=== PATIENT | female | born 1980 | race Caucasian/White ===

== ENCOUNTER → 2016-11-04 | Outpatient (CLI) | payer BC ==
[~2016-11-04] MED LIST: CALC200T; HYDR200T5 PO; LEVO112T2 PO; PRENTAB26 PO
[2016-11-04 17:34] LABS: HEMATOCRIT 34.8 % (37-47)
[2016-11-04 17:54] LABS: GTGD 50 Grams
[2016-11-04 18:08] LABS: THYROID STIMULATING HORMONE 1.48 uIu/ml (0.300-4.500)
[2016-11-04 20:32] LABS: MANUAL MICROSCOPIC REQUIRED? NO; REVIEW REQ? NO; URINE APPEARANCE CLEAR (CLEAR); URINE BILIRUBIN NEG (NEG); URINE COLOR YELLOW; URINE NITRITE NEG (NEG); URINE PH 6.5 (4.5-7.5); URINE SPECIFIC GRAVITY 1.009 (1.000-1.030); UROBILINOGEN NEG (NEG)
== END | disposition home or self-care (01) ==
LOC: C.LAB1850 15:57
PROVIDERS: ATTEND Obstetrics & Gynecology
DX: O99.283 Endocrine, nutritional and metabolic diseases complicating pregnancy, third trimester (principal); E06.3 Autoimmune thyroiditis

== ENCOUNTER → 2016-11-14 | Outpatient (CLI) | payer BC | END | disposition home or self-care (01) | LOC: C.LAB1850 07:24 | PROVIDERS: ATTEND Obstetrics & Gynecology | DX: O28.9 Unspecified abnormal findings on antenatal screening of mother (principal); Z3A.00 Weeks of gestation of pregnancy not specified ==

== ENCOUNTER → 2016-11-16 | Outpatient (CLI) | payer BC ==
[2016-11-21 16:17] LABS: CYTOMEGALOVIRUS IGG AB <0.91
== END | disposition home or self-care (01) ==
LOC: C.LAB1850 16:06
PROVIDERS: ATTEND Obstetrics & Gynecology
DX: Z11.59 Encounter for screening for other viral diseases (principal)

== ENCOUNTER 2016-11-20 10:50 | Outpatient (CLI) | payer BC | END 2016-11-20 11:35 | disposition home or self-care (01) | LOC: C.OPB 10:50 → C.LD 10:51 → C.OPB 11:35 | PROVIDERS: ATTEND Obstetrics & Gynecology | DX: O36.8130 Decreased fetal movements, third trimester, not applicable or unspecified (principal); Z3A.30 30 weeks gestation of pregnancy ==

== ENCOUNTER → 2016-12-02 | Outpatient (CLI) | payer BC ==
[2016-12-02 17:54] LABS: THYROID STIMULATING HORMONE 1.06 uIu/ml (0.300-4.500)
== END | disposition home or self-care (01) ==
LOC: C.LAB1850 16:47
PROVIDERS: ATTEND Obstetrics & Gynecology
DX: O99.283 Endocrine, nutritional and metabolic diseases complicating pregnancy, third trimester (principal)

== ENCOUNTER → 2016-12-26 | Outpatient (CLI) | payer BC ==
[2016-12-29 23:45] LABS: CYTOMEGALOVIRUS IGG AB <0.91
== END | disposition home or self-care (01) ==
LOC: C.LAB 08:00
PROVIDERS: ATTEND Obstetrics & Gynecology
DX: Z11.59 Encounter for screening for other viral diseases (principal)

== ENCOUNTER → 2016-12-30 | Outpatient (CLI) | payer BC | END | disposition home or self-care (01) | LOC: C.LABSPEC 17:45 | PROVIDERS: ATTEND Obstetrics & Gynecology | DX: O99.283 Endocrine, nutritional and metabolic diseases complicating pregnancy, third trimester (principal); Z3A.00 Weeks of gestation of pregnancy not specified ==

== ENCOUNTER 2017-01-25 02:48 | Inpatient (IN) | payer BC ==
[~2017-01-25] VITALS: Ht 167.6 cm; Wt 102.0 kg
[2017-01-30] MEDS ORDERED: LACTATED RINGER'S 1000ML 1,000 ML IV PRN (20:50)
[2017-01-30] MEDS ORDERED: LACTATED RINGER'S 1000ML 1,000 ML IV SCH (20:50)
[2017-01-30] MEDS ORDERED: EpHEDrine SULFATE INJ 50 MG/ML AMP ONE (20:59)
[2017-01-30] MEDS ORDERED: FENTANYL CITRATE INJ 50 MCG/1 ML 2 ML VIAL ONE (20:59)
[2017-01-30] MEDS ORDERED: BUPIVACAINE 0.25% 30 ML VIAL ONE (20:59)
[2017-01-30] MEDS ORDERED: PENICILLIN G POTASSIUM IV 3 MU in DEXTROSE 5% 100ML 100 ML IV PRN (21:00)
[2017-01-30] MEDS ORDERED: FENTANYL 2MCG/ML ROPIV 1.25MG/ML 100ML BAG EPI ONE (21:00)
[2017-01-30 21:08] LABS: MEAN CELL VOLUME 92.7 fL (80-100); MEAN CORPUSCULAR HEMOGLOBIN 31.6 pg (25-34); MEAN CORPUSCULAR HGB CONC 34.1 g/dl (32-36); MEAN PLATELET VOLUME 10.9 fL (7.4-10.4); PLATELET COUNT 176 K/uL (130-400); RED BLOOD COUNT 3.99 M/uL (4.2-5.4); WHITE BLOOD COUNT 10.79 K/uL (4.8-10.8)
[2017-01-30 21:10] VITALS: Ht 167.6 cm; Wt 102.0 kg
[2017-01-30] MEDS ORDERED: PENICILLIN G POTASSIUM IV 6 MU in DEXTROSE 5% 250ML 250 ML IV ONE (21:15)
[2017-01-30] MEDS ORDERED: OXYTOCIN 30 UNITS/500ML NSS IV ONE (21:31)
[2017-01-30] MEDS ORDERED: SUPERCREAM 0.870 % 15GM JAR EXT PRN (22:00)
[2017-01-30] MEDS ORDERED: BENZOCAINE 20% AER SPR 82.5 GM CAN EXT PRN (22:00)
[2017-01-30] MEDS ORDERED: HYDROCORTISONE ACETATE 25 MG SUPP PR PRN (22:00)
[2017-01-30] MEDS ORDERED: ACETAMINOPHEN 325 MG TAB PO PRN (22:00)
[2017-01-30] MEDS ORDERED: ACETAMINOPHEN/CODEINE 300/30MG TAB PO PRN ×2 (22:00)
[2017-01-30] MEDS ORDERED: HYDROXYCHLOROQUINE SULFATE 200 MG TAB PO SCH (22:00)
[2017-01-30] MEDS ORDERED: LANOLIN OINT EXT PRN ×2 (22:00)
[2017-01-30] MEDS: IBUPROFEN 600 MG TAB PO PRN (22:00)
[2017-01-30] MEDS ORDERED: DIPHTHERIA/TETANUS/PERTUSSIS 0.5 ML SYR/VIAL IM. ONE (22:00)
[2017-01-30] MEDS ORDERED: OXYTOCIN INJ 10 UNITS/ML VIAL IM ONE (22:00)
[2017-01-30] MEDS ORDERED: HYDR200T5 PO ×2 (22:15→22:16)
[2017-01-30] MEDS ORDERED: NURSING VERBAL MED ORDER ONE (22:30)
[2017-01-31] VITALS (8 sets, daily range): BP systolic 116–135; BP diastolic 67–89; PULSE 76–94; TEMP 36.7–37; O2SAT 97–98
--- NOTE | 2017-01-31 00:13 | DELIVERY SUMMARY ---
DATE OF OPERATION: 01/30/2017 FINDINGS: Viable male with Apgars of 8 and 9. Baby delivered over a midline second-degree laceration. Placenta delivered spontaneously. ESTIMATED BLOOD LOSS: 300 mL. LABOR NOTE: The patient is a 36-year-old 3, para 1 with an EDC of January 25 by dates and first trimester ultrasound, who presented to labor and delivery at 40+ weeks gestational in active labor. Patient states that she had been carmen irregularly throughout the day. Her membranes ruptured at approximately 1930 hours on the day of delivery. She described the fluid as yellow. Contractions increased in intensity and the patient presented to labor and delivery for evaluation. The patient carries a diagnosis of a connective tissue defect for which she is on Plaquenil. The maternal medicine consult early in the had recommended baby aspirin throughout the until 36 weeks gestational age. Patient also has a history of hypothyroidism and was on thyroid replacement medication. The TSH remained less than 3 throughout the entire gestation. Patient also has a diagnosis of advanced maternal age. She had a negative first trimester Cell-Free DNA screening and a negative maternal serum AFP. LABORATORY: Laboratory values for the show blood type of O positive, antibody negative, rubella immune, hepatitis B negative. She had a normal 1-hour Glucola at 16 weeks and elevated 1-hour Glucola at 28 weeks with a normal 2-hour glucose tolerance test and she had a positive third trimester group B strep culture. Upon admission, the patient was grossly ruptured, carmen regularly. The tracing was category 2 and she was 5-6 cm. Patient requested epidural anesthesia, but before anesthesia could arrive, the patient progressed to full dilatation and began her second stage. She pushed for approximately 15 minutes, delivering a viable male over a second-degree midline laceration. There was a good vigorous cry at , terminating meconium resuscitation. Cord blood samples were obtained. Placenta delivered spontaneously. The midline laceration was repaired with 4-0 Vicryl in a routine fashion. Estimated blood loss was 300 mL. Sponge and needle count was correct. I attest to the content of the Intraoperative Record and any orders documented therein. Any exceptio ns are noted below.
[2017-01-31 05:57] LABS: HEMATOCRIT 33.6 % (37-47)
--- NOTE | 2017-01-31 06:38 | Progress Note ---
Subjective January 31, 2017. Subjective conversation w/ patient, physical exam, lab review Ambulation: ambulating normally Voiding: no voiding problems Passing Gas: Yes Diet Tolerance: Regular Diet Lochia: Moderate Feeding Type: Breast Feeding Pain: denies pain Comment: Patient was seen at the bedside. No acute event overnight. Review of Systems Constitutional: No fever Respiratory: No cough, No shortness of breath Cardiac: No chest pain Breast: No breast lump Abdomen: No nausea, No pain, No vomiting Female : No dysuria Denies headache Objective Vital Signs Date Time Temp Pulse Resp B/P Pulse Ox O2 Delivery O2 Flow Rate FiO2 01/31/17 03:45 36.9 83 18 116/75 Room Air 01/31/17 00:10 36.8 82 18 120/67 Room Air 01/31/17 00:10 Room Air Physical Exam General Appearance: WELL-APPEARING, WD/WN, NO APPARENT DISTRESS Respiratory/Chest: chest non-tender, lungs clear, normal breath sounds, no respiratory distress Cardiovascular: regular rate, rhythm Abdomen: normal bowel sounds, non tender, soft Fundus: Firm, Relation to Umbilicus (at the U) Extremities: non-tender, no pedal edema, no calf tenderness Laboratory Results Last 24 Hours Test 01/30/17 21:01 01/31/17 05:46 White Blood Count 10.79 K/uL Red Blood Count 3.99 M/uL Hemoglobin 12.6 g/dL 11.5 g/dL Hematocrit 37.0 % 33.6 % Mean Corpuscular Volume 92.7 fL Mean Corpuscular Hemoglobin 31.6 pg Mean Corpuscular Hemoglobin Concent 34.1 g/dl RDW Standard Deviation 43.3 fL RDW Coefficient of Variation 12.8 % Platelet Count 176 K/uL Mean Platelet Volume 10.9 fL Medications Current Inpatient Medications Medications (Trade) Dose Ordered Sig/Freedom Route Start Time Stop Time Status Last Admin Dose Admin Benzocaine (Dermoplast Aero Spr) 1 appln PRN PRN EXT 01/30/17 22:00 03/01/17 21:59 Cocaine HCl (Supercream 0.870% Cr) BID PRN EXT 01/30/17 22:00 02/13/17 21:59 Hydrocortisone Acetate (Anusol Hc Supp) 25 mg BID PRN AK 01/30/17 22:00 03/01/17 21:59 Lanolin (Lanolin Oint) PRN PRN EXT 01/30/17 22:00 03/01/17 21:59 Prenat Multivit/ [place]/Iron/Folic Ac ( Vitamin Tab) 1 tab DAILY PO 01/31/17 08:00 03/02/17 07:59 Ibuprofen (Motrin Tab) 600 mg Q4H PRN PO 01/30/17 22:00 03/01/17 21:59 01/30/17 22:00 600 MG Acetaminophen (Tylenol Tab) 650 mg Q6H PRN PO 01/30/17 22:00 03/01/17 21:59 Acetaminophen/ Codeine Phosphate (Tylenol w/ Codeine #3 Tab) 1 tab Q4H PRN PO 01/30/17 22:00 03/01/17 21:59 Acetaminophen/ Codeine Phosphate (Tylenol w/ Codeine #3 Tab) 2 tab Q4H PRN PO 01/30/17 22:00 03/01/17 21:59 Bisacodyl (Dulcolax Tab) 5 mg 20 PO 01/31/17 20:00 01/31/17 20:01 Docusate Sodium (coLACE CAP) 100 mg BID PO 01/31/17 08:00 03/02/17 07:59 Ferrous Sulfate (Feosol Tab) 325 mg DAILY PO 01/31/17 08:00 03/02/17 07:59 Levothyroxine Sodium (Synthroid Tab) 112 mcg DAILYBB PO 01/31/17 07:30 03/02/17 07:29 Hydroxychloroquine Sulfate (Plaquenil Tab) 400 mg DAILY PO 01/31/17 08:00 03/02/17 07:59 Assessment and Plan Post- Day#: 1 Continue Routine Care: A/P: This is a 36 y/o female, , s/p normal vaginal delivery. She is ambulating and clinically stable. Plan: - Vitals signs are reviewed and WNL (Tmax 36.9 ) - Last Hgb is 11.5 - Blood type A+, GBS positive, Rubella Immune - Routine care - Encourage ambulation, monitor and control pain with medication as needed , continue with regular diet as tolerated and monitor lochia - Stool softeners and sitz bath recommended - Encourage breast feeding and educate about breast feeding Resident Physician Supervision Note: I interviewed and examined the patient. Discussed with Dr. Cote and agree with findings and plan as documented in the note. Any exceptions or clarifications are listed here: [None] Documented By: Lyndon Larson
[2017-01-31] MEDS ORDERED: NURSING VERBAL MED ORDER ONE (07:30)
[2017-01-31] MEDS ORDERED: LEVOTHYROXINE 112 MCG TAB PO SCH (07:30)
[2017-01-31] MEDS: HYDROXYCHLOROQUINE SULFATE 200 MG TAB PO SCH (08:29)
[2017-01-31] MEDS: FERROUS SULFATE 325 MG TAB PO SCH (08:29)
[2017-01-31] MEDS: PRENATAL VITAMIN TAB PO SCH (08:29)
[2017-01-31] MEDS: DOCUSATE SODIUM 100 MG CAP PO SCH ×2 (08:29→20:41)
[2017-01-31] MEDS: LEVOTHYROXINE 88 MCG TAB PO SCH (09:15)
[2017-01-31] MEDS ORDERED: BISACODYL 5 MG TABEC PO SCH (20:00)
[2017-01-31] MEDS: IBUPROFEN 600 MG TAB PO PRN (20:41)
--- NOTE | 2017-02-01 03:42 | Discharge Instructions ---
Discharge Instructions Date of Service February 01, 2017. Admission Reason for Admission: Check Ruptured Membrane Discharge Discharge Diagnosis / Problem: s/p vaginal delivery Discharge Goals Goal(s): Routine recovery after delivery Activity Recommendations Activity Limitations: per Instructions/Follow-up section . Instructions / Follow-Up Instructions / Follow-Up ACTIVITY RECOMMENDATIONS: * Gradual return to full activity over the next 2-3 weeks. * No lifting - nothing heavier than baby over the next 2-3 weeks. * Do not engage in vigorous exercise, sexual activity or sports until cleared by your physician. * Do not drive or operate any motorized equipment until cleared by your physician. * You may shower/bathe daily. MEDICATIONS: For discomfort or pain, you may use Acetaminophen (Tylenol), Ibuprofen (Advil), or Naproxen (Aleve) following the package directions. For constipation you may use Colace following the package directions. BREAST CARE: If you are not breast feeding: * Wear a supportive bra 24 hours a day for one to two weeks. * Avoid stimulating your breasts and nipples as much as possible during the first few weeks after delivery. * When taking a shower, have the warm water hit your back, not breasts. * When your breasts feel full, apply ice packs. Usually three to four times a day helps ease the discomfort. * Take a mild pain medication (Tylenol / Motrin) when you are uncomfortable. If breast feeding: * Use breast milk to lubricate nipples. Lansinoh cream may be used for sore nipples. You do not need to remove cream prior to breast feeding. If using a different brand of cream, check the label for directions regarding removal of cream prior to nursing. * Wear a supportive bra. * If having problems with breasts or breast feeding, call a specialty development consultant or your health care provider. EPISIOTOMY CARE: After delivery, if you have an episiotomy (stitches), the following steps will ease discomfort and aid healing. * For the first 24 hours after delivery, place ice packs next to your episiotomy to help reduce swelling. * After the first 24 hour-period, sitz baths, either portable or in the tub, are suggested. A shower with a shower arm sprayed over the episiotomy may be comforting. * Coreen care should be done after each voiding and bowel movement. Squirt warm water from a plastic bottle over the perineum (region of the body between the anus and urinary opening) and pat dry. * Use Dermoplast to ease discomfort. Shake container. [place] directly over the episiotomy. Place a Tucks on a clean sanitary pad next to your episiotomy. SPECIAL CARE INSTRUCTIONS: When you are discharged from the hospital, it is important for you to follow the instructions listed below: * During the first week at home, you should be able to care for yourself and your baby. In addition, the usual light household activities are encouraged. * Limit your activities to the way you feel. Do not try to clean the house or move furniture. Be sensible. * If you actively engage in sports and have done so up until the time of your delivery, you may resume these activities as soon as you feel able. This may take up to one month or even longer. Use good judgment. * Continue to take your vitamins for at least six weeks after the of your baby. * Your diet need not be limited unless you were on a special diet before your delivery. Breast-feeding mothers need around 2500 calories per day and at least 64-80 ounces of fluid per day (8 to 10 glasses). * You should eat foods from the four major food groups. Crash diets or fad diets are to be avoided. Eating lean meats, fresh fruits and vegetables, low-fat dairy products, high fiber foods and a regular exercise program, will help you get back to your pre- weight without putting your health at risk. * Constipation is sometimes a problem after delivery. Take a mild laxative as needed. If breast feeding, Milk of Magnesia is acceptable to use. You may use a suppository or Fleets enema if no episiotomy. * A daily shower or tub bath is suggested. Be sure to thoroughly and gently dry the perineum. * A bloody vaginal discharge will usually continue until around four weeks post . A small amount of bleeding may continue for as long as six weeks. Vaginal discharge changes from the bright red bleeding after delivery to pink then brownish and finally yellowish-pink before becoming white and disappearing. * Bleeding may increase with activity. Your first period may come in 4-8 weeks. If you are breast feeding, your period may be delayed even longer. * Hominy (sex) can begin whenever both you and your partner feel comfortable and do not have any form of genital infection. It is recommended that you wait at least six weeks for internal and external healing to occur. If you have questions, please talk to your health care practitioner. A condom should be used to prevent infection and . * Foreplay, gentle intercourse and lubrication is very important the first several times to prevent pain. A water-based lubricant such as K-Y jelly or Astroglide may be used. * If you have RH negative blood and your baby is RH positive, you will receive RHOGAM by injection prior to discharge. The nurse will give you a card to keep with you that has the date and place that you received RHOGAM after delivery. * During your care, you had a Rubella screen done to check for the presence of rubella antibodies in your blood. If your test was negative, you will receive a Rubella vaccine prior to discharge. This vaccine may cause a fever, soreness at the injection site and flu-like symptoms. If these symptoms persist, notify your health care practitioner. is not advised for one month after a Rubella vaccine. * Verbalizes understanding of car seat law as reviewed with patient nursing. * Car Seat hand-out given and reviewed with patient by nursing. * Shaken baby information reviewed with patient by nursing. Call you doctor if: * Heavy bleeding (saturating several pads an hour) or passing clots the size of your fist. * A fever >101 degrees F (38.3 degrees C) on two occasions four hours apart and /or chills. * Unusual pain in the pelvic or vaginal areas. * "Baby Blues" lasting longer than two weeks. If you have any questions or concerns, call your health care practitioner at . FOLLOW UP VISIT: * Please call the office at to schedule a 6 week examination. It is important you keep this appointment. It is important for you to make arrangements for either yearly or twice yearly check-ups thereafter. Current Hospital Diet Patient's current hospital diet: Regular OB Diet Discharge Diet Recommended Diet: Regular OB Diet Pending Studies Studies pending at discharge: no Medical Emergencies . Who to Call and When: Medical Emergencies: If at any time you feel your situation is an emergency, please call 911 immediately. . Non-Emergent Contact Non-Emergency issues call your: Primary Care Provider, Collar Starcher . . "Provider Documentation" section prepared by Ruth Cohen. . VTE Core Measure Inpt VTE Proph given/why not?: Treatment not indicated
--- NOTE | 2017-02-01 05:09 | Progress Note ---
Subjective February 01, 2017. Subjective conversation w/ patient, physical exam Ambulation: ambulating normally Voiding: no voiding problems Passing Gas: Yes Diet Tolerance: Regular Diet Lochia: Moderate Feeding Type: Breast Feeding Review of Systems Constitutional: No problem reported Respiratory: No problem reported Cardiac: No problem reported Breast: No problem reported Abdomen: No problem reported Female : No problem reported Objective Vital Signs Date Time Temp Pulse Resp B/P Pulse Ox O2 Delivery O2 Flow Rate FiO2 01/31/17 23:30 36.8 89 18 122/74 98 Room Air 01/31/17 23:30 98 Room Air 01/31/17 20:30 36.7 94 18 119/79 Room Air 01/31/17 16:00 Room Air 01/31/17 15:05 36.7 84 16 124/89 97 Room Air 01/31/17 11:05 36.8 76 18 135/80 Room Air 01/31/17 11:00 36.8 76 16 127/79 Room Air 01/31/17 07:25 Room Air 01/31/17 07:25 37.0 84 16 127/79 Room Air Physical Exam General Appearance: WELL-APPEARING, NO APPARENT DISTRESS Respiratory/Chest: no respiratory distress Cardiovascular: regular rate, rhythm Abdomen: non tender, soft Fundus: Firm Extremities: normal inspection Laboratory Results Last 24 Hours Test 01/31/17 05:46 Hemoglobin 11.5 g/dL Hematocrit 33.6 % Assessment and Plan Post- Day#: 2 Continue Routine Care: PPD#2. Feeling well. Discharge to home today. Discharge teaching done. RTO 6w .
[2017-02-01 08:00] VITALS: BP 122/79; PULSE 77; TEMP 36.6
[2017-02-01] MEDS: FERROUS SULFATE 325 MG TAB PO SCH (08:09)
[2017-02-01] MEDS: PRENATAL VITAMIN TAB PO SCH (08:09)
[2017-02-01] MEDS: DOCUSATE SODIUM 100 MG CAP PO SCH (08:11)
[2017-02-01] MEDS: HYDROXYCHLOROQUINE SULFATE 200 MG TAB PO SCH (08:11)
[2017-02-01] MEDS: LEVOTHYROXINE 88 MCG TAB PO SCH (10:51)
[2017-02-01 15:50] VITALS: BP 126/89; PULSE 84; TEMP 36.8; O2SAT 98
[2017-02-01 19:00] VITALS: BP_DIAS 89; PULSE 84; TEMP 36.8
== END 2017-02-01 19:00 | disposition home or self-care (01) | DRG 775 ==
LOC: C.LD 01-30 20:40 → C.OBG 01-31 00:12
PROVIDERS: ADMIT Obstetrics & Gynecology; ATTEND Obstetrics & Gynecology
PROC: 0KQM0ZZ Repair Perineum Muscle, Open Approach (ICD-10-PCS; principal; 2017-01-30)
PROC: 10E0XZZ Delivery of Products of Conception, External Approach (ICD-10-PCS; principal; 2017-01-30)
DX: O42.02 Full-term premature rupture of membranes, onset of labor within 24 hours of rupture (principal); Z37.0 Single live birth; O48.0 Post-term pregnancy; O70.1 Second degree perineal laceration during delivery; O99.89 Other specified diseases and conditions complicating pregnancy, childbirth and the puerperium; M35.9 Systemic involvement of connective tissue, unspecified; O77.0 Labor and delivery complicated by meconium in amniotic fluid; O99.284 Endocrine, nutritional and metabolic diseases complicating childbirth; E03.9 Hypothyroidism, unspecified; O99.824 Streptococcus B carrier state complicating childbirth; O26.893 Other specified pregnancy related conditions, third trimester; Z3A.40 40 weeks gestation of pregnancy; Z79.899 Other long term (current) drug therapy

== ENCOUNTER → 2017-02-28 | Outpatient (CLI) | payer BC ==
[~2017-02-28] MED LIST changes: -CALC200T
--- NOTE | 2017-02-28 13:04 | DIAGNOSTIC IMAGING REPORT ---
THYROID ULTRASOUND HISTORY: Hypothyroidism - COMPARISON: None. FINDINGS: Right lobe: Maximum dimension 5.3 cm. 3 mm lower pole cyst. Otherwise uniform echogenicity. Left lobe: Maximum dimension 5.2 cm. Uniform echogenicity. Isthmus: No nodules. IMPRESSION: 3 mm lower pole right thyroid cyst. Otherwise normal exam Electronically signed by: Sheldon Pantoja M.D. 02/28/2017 1:02 PM Dictated Date/Time: 02/28/2017 1:01 PM
== END | disposition home or self-care (01) ==
LOC: C.ULTR 12:36
PROVIDERS: ATTEND Internal Medicine
DX: E03.8 Other specified hypothyroidism (principal)

== ENCOUNTER → 2017-03-01 | Outpatient (CLI) | payer BC | END | disposition home or self-care (01) | LOC: C.PATHSPEC 17:52 | PROVIDERS: ATTEND Plastic Surgery | DX: D23.30 Other benign neoplasm of skin of unspecified part of face (principal) ==

== ENCOUNTER → 2017-08-16 | Outpatient (CLI) | payer BC | END | disposition home or self-care (01) | LOC: C.PATHSPEC 17:25 | PROVIDERS: ATTEND Obstetrics & Gynecology | DX: A63.0 Anogenital (venereal) warts (principal); L57.0 Actinic keratosis ==

== ENCOUNTER → 2017-10-09 | Outpatient (CLI) | payer BC | END | disposition home or self-care (01) | LOC: C.PAPS 10:32 | PROVIDERS: ATTEND Obstetrics & Gynecology | DX: Z01.419 Encounter for gynecological examination (general) (routine) without abnormal findings (principal); Z87.898 Personal history of other specified conditions ==